=== PATIENT | male | born 1955 | race Caucasian/White ===

== ENCOUNTER 2020-06-25 07:07 | Emergency (ER) | payer OTHER ==
[~2020-06-25] VITALS: Ht 167.6 cm; Wt 837.8 kg
[2020-06-25] MEDS ORDERED: ACETAMINOPHEN-H1 TA1 PO (08:50)
[2020-06-25] MEDS ORDERED: VOLTAREN100 GM TOP (08:50)
[2020-06-25 09:43] VITALS: BP 134/78
== END 2020-06-25 09:43 | disposition home or self-care (01) ==
LOC: ED
DX: S22.41XA Multiple fractures of ribs, right side, initial encounter for closed fracture (principal); K21.9 Gastro-esophageal reflux disease without esophagitis; W11.XXXA Fall on and from ladder, initial encounter; Y93.89 Activity, other specified; Y92.89 Other specified places as the place of occurrence of the external cause; Y99.8 Other external cause status